=== PATIENT | female | born 1985 | race Caucasian/White ===

== ENCOUNTER 2017-03-17 11:34 | Inpatient (IN) | payer OTHER ==
[~2017-03-17] VITALS: Ht 167.6 cm; Wt 75.9 kg
[~2017-03-17 11:34] MED LIST: METHYLERGONOVINE 0.2 MG/ML IM ONE
[2017-03-17] MEDS ORDERED: NEWBORN KIT ONE (11:38)
[2017-03-17] MEDS ORDERED: OXYTOCIN 10 UNITS/ML, 1ML ONE (11:38)
[2017-03-17] MEDS ORDERED: LIDOCAINE 1%, 20ML ONE (11:39)
[2017-03-17] MEDS ORDERED: OXYTOCIN 30U/ 0.9% NaCL 500ML 500 ML IV ONE (11:43)
[2017-03-17] MEDS ORDERED: PLEASE ENTER HEIGHT AND WEIGHT MC SCH (12:00)
[2017-03-17] MEDS: OXYTOCIN 30U/ 0.9% NaCL 500ML 500 ML IV SCH ×2 (12:22→22:22)
[2017-03-17] MEDS ORDERED: DOCUSATE 100 MG CAPSULE PO PRN (12:30)
[2017-03-17] MEDS ORDERED: HYDROcodone/APAP 5/325 TABLET PO PRN ×2 (12:30)
[2017-03-17] MEDS ORDERED: ONDANSETRON 2MG/ML, 2ML IV PRN (12:30)
[2017-03-17] MEDS ORDERED: OXYTOCIN 10 UNITS/ML, 1ML IM PRN (12:30)
[2017-03-17] MEDS ORDERED: METHYLERGONOVINE 0.2 MG/ML IM PRN (12:30)
[2017-03-17] MEDS ORDERED: MISOPROSTOL 200 MCG TABLET PR PRN (12:30)
[2017-03-17] MEDS ORDERED: MISOPROSTOL 200 MCG TABLET ONE (12:45)
[2017-03-17] MEDS: LACTATED RINGERS 1,000 ML IV SCH ×4 (12:50→18:54)
[2017-03-17] MEDS ORDERED: OXYTOCIN 30U/ 0.9% NaCL 500ML 500 ML ONE ×2 (13:02→14:56)
[2017-03-17] MEDS ORDERED: IBUPROFEN 600 MG TABLET ONE (13:04)
[2017-03-17] MEDS: IBUPROFEN 600 MG TABLET PO PRN (13:06)
[2017-03-17] MEDS ORDERED: FENTANYL PF 100 MCG/2ML ONE (13:17)
[2017-03-17] MEDS ORDERED: FENTANYL 100 MCG PATCH TD SCH (13:30)
[2017-03-17 14:15] VITALS: BP 136/86
[2017-03-17 15:07] LABS: DIFF TOTAL CELLS COUNTED 100 CELL DIFF
[2017-03-17 15:08] LABS: VERIFY COUNTS? YES
[2017-03-17 15:09] LABS: LARGE PLATELETS 2+
[2017-03-17] MEDS ORDERED: FENTANYL PF 100 MCG/2ML IVPush ONE (17:00)
[2017-03-17 20:15] LABS: DIFF TOTAL CELLS COUNTED 100 CELL DIFF
[2017-03-17 20:18] LABS: GIANT PLATELETS 1+; LARGE PLATELETS 1+
[2017-03-17 20:19] LABS: VERIFY COUNTS? YES
[2017-03-17 20:30] VITALS: BP 96/61
[2017-03-18 00:30] VITALS: BP 94/58
[2017-03-18 04:45] VITALS: BP 95/57
[2017-03-18] MEDS ORDERED: PRENATAL VIT/IRON/FA 1 EACH TABLET ONE (07:44)
[2017-03-18 07:45] VITALS: BP 100/65
[2017-03-18] MEDS: OXYTOCIN 30U/ 0.9% NaCL 500ML 500 ML IV SCH ×2 (08:22→18:22)
[2017-03-18] MEDS: FERROUS GLUCONATE 324 MG TABLET PO SCH ×2 (08:39→17:41)
[2017-03-18] MEDS: IBUPROFEN 600 MG TABLET PO PRN ×2 (08:39→17:38)
[2017-03-18] MEDS: PRENATAL VIT/IRON/FA 1 EACH TABLET PO SCH (08:39)
[2017-03-18] MEDS: DOCUSATE 100 MG CAPSULE PO SCH ×2 (08:39→21:00)
[2017-03-18 13:00] VITALS: BP 89/59
[2017-03-18 19:59] LABS: PROTIME 8.8 Seconds (9.6-11.5)
[2017-03-18 22:00] VITALS: BP 95/56
[2017-03-19] MEDS: OXYTOCIN 30U/ 0.9% NaCL 500ML 500 ML IV SCH (04:22)
[2017-03-19 07:13] VITALS: BP 99/61
[2017-03-19] MEDS: PRENATAL VIT/IRON/FA 1 EACH TABLET PO SCH (08:32)
[2017-03-19] MEDS: FERROUS GLUCONATE 324 MG TABLET PO SCH (08:32)
[2017-03-19] MEDS: IBUPROFEN 600 MG TABLET PO PRN (08:33)
[2017-03-19] MEDS: DOCUSATE 100 MG CAPSULE PO SCH (09:00)
[2017-03-19] MEDS ORDERED: IBUP-1222 PO (13:08)
[2017-03-19] MEDS ORDERED: DOCU-30 PO (13:09)
[2017-03-19] MEDS ORDERED: FERR325T23 PO (13:09)
== END 2017-03-19 15:43 | disposition home or self-care (01) | DRG 774 ==
LOC: LDOP 11:34 → LDIP 11:38 → 2NW 19:37
PROVIDERS: ADMIT Obstetrics & Gynecology; ATTEND Obstetrics & Gynecology
PROC: 10E0XZZ Delivery of Products of Conception, External Approach (ICD-10-PCS; principal; 2017-03-17)
DX: O99.824 Streptococcus B carrier state complicating childbirth (principal); O72.1 Other immediate postpartum hemorrhage; O62.3 Precipitate labor; D64.9 Anemia, unspecified; O99.03 Anemia complicating the puerperium; O26.893 Other specified pregnancy related conditions, third trimester; Z67.11 Type A blood, Rh negative; Z37.0 Single live birth; Z3A.39 39 weeks gestation of pregnancy; Z90.89 Acquired absence of other organs; Z88.8 Allergy status to other drugs, medicaments and biological substances
CPT/HCPCS: 36415; 85025; 85049; 85379; 85384; 85610; 85730; 86850; 86900; 86923; J3010; J2210; J2590; J7120

== ENCOUNTER 2017-04-24 18:17 | Inpatient (IN) | payer OTHER ==
[~2017-04-24] VITALS: Ht 167.6 cm; Wt 66.0 kg
[~2017-04-24 18:17] MED LIST changes: +DOCU-30 PO; +FERR325T23 PO; +IBUP-1222 PO; -METHYLERGONOVINE 0.2 MG/ML IM ONE
[2017-04-24] MEDS ORDERED: SODIUM CHLORIDE 0.9% 1,000 ML IV ONE ×2 (18:38→22:41)
[2017-04-24] MEDS ORDERED: SODIUM CHLORIDE 0.9% 1,000ML IVBOLUS ONE (19:00)
[2017-04-24] MEDS ORDERED: SODIUM CHLORIDE FLUSH 10ML SYR IVF ONE (19:00)
[2017-04-24 19:26] LABS: ASPARTATE AMINO TRANSFERASE 15 U/L (15-37); BLOOD UREA NITROGEN 16 mg/dL (7-18)
[2017-04-24] MEDS ORDERED: SODIUM CHLORIDE FLUSH 10ML SYR IVF PRN (23:00)
[2017-04-24 23:30] VITALS: BP 88/50
[2017-04-25] MEDS: METHYLERGONOVINE 0.2MG TABLET PO SCH ×5 (00:19→16:00)
[2017-04-25] MEDS ORDERED: LACTATED RINGERS 1,000 ML IVBOLUS ONE (01:00)
[2017-04-25] MEDS: LACTATED RINGERS 1,000 ML IV SCH ×2 (03:00→11:00)
[2017-04-25 05:15] VITALS: BP 86/50
[2017-04-25 08:40] VITALS: BP 118/77
[2017-04-25] MEDS ORDERED: LIDOCAINE/PF 1%-EPI 1:200K, 30ML ONE (11:32)
[2017-04-25] MEDS ORDERED: OXYTOCIN 10 UNITS/ML, 1ML ONE ×2 (11:33→12:16)
[2017-04-25] MEDS ORDERED: METHYLERGONOVINE 0.2 MG/ML IM ONE (11:33)
[2017-04-25] MEDS ORDERED: MISOPROSTOL 200 MCG TABLET ONE ×2 (11:33→11:40)
[2017-04-25] MEDS ORDERED: SILVER NITRATE STICK TP ONE (11:34)
[2017-04-25] MEDS ORDERED: PROPOFOL 10 MG/ML, 20ML ONE (12:16)
[2017-04-25] MEDS ORDERED: DEXAMETHASONE 4 MG/ML, 1ML ONE (12:16)
[2017-04-25] MEDS ORDERED: CEFAZOLIN 1,000 MG ONE (12:16)
[2017-04-25] MEDS ORDERED: ONDANSETRON 2MG/ML, 2ML ONE (12:16)
[2017-04-25 16:55] VITALS: BP 85/52
[2017-04-25 19:45] VITALS: BP 92/48
[2017-04-25] MEDS ORDERED: FERR325T5 PO (20:22)
== END 2017-04-25 21:00 | disposition home or self-care (01) | DRG 769 ==
LOC: ED 22:40 → EDIP 22:41 → ED 22:56 → 2NW 23:25
PROVIDERS: ADMIT Student in an Organized Health Care Education/Training Program; ATTEND Student in an Organized Health Care Education/Training Program
PROC: 10D17ZZ Extraction of Products of Conception, Retained, Via Natural or Artificial Opening (ICD-10-PCS; principal; 2017-04-25 11:30)
DX: O72.2 Delayed and secondary postpartum hemorrhage (principal); D62 Acute posthemorrhagic anemia; O99.03 Anemia complicating the puerperium
CPT/HCPCS: 36415; 76830; 76998; 80053; 85025; 85610; 85730; 86850; 86900; 88305; 96360; J0690; J1100; J2250; J2405; J2704; J3010; J3490; J2210; J2590; J7030; J7120

== ENCOUNTER → 2021-07-15 | Outpatient (CLI) | payer OTHER ==
[~2021-07-15] MED LIST changes: +DOCU-131 PO; -DOCU-30 PO; +FERR325T5 PO
== END | disposition home or self-care (01) ==
LOC: RAD 08:14 → EDSTATUS 08:30
PROVIDERS: ATTEND Obstetrics & Gynecology
DX: N85.4 Malposition of uterus (principal); R10.2 Pelvic and perineal pain; Z80.41 Family history of malignant neoplasm of ovary
CPT/HCPCS: 76856